=== PATIENT | female | born 1995 | race African-American/Black ===

== ENCOUNTER 2022-11-15 13:29 | Emergency (ER) | payer MEDICAID, OTHER ==
[~2022-11-15] VITALS: Ht 167.6 cm; Wt 53.5 kg
[2022-11-15] MEDS ORDERED: LIDOCAINE HCL 1% 20 ML VIAL ONE (13:51)
[2022-11-15] MEDS ORDERED: LIDOCAINE HCL 1% 20 ML VIAL IJ ONE (14:00)
[2022-11-15] MEDS ORDERED: NEOMY/BACITRA/POLYMYXIN B OINT UD PACKET TP ONE ×2 (14:50→15:00)
--- NOTE | 2022-11-15 15:02 | NUR ---
Crutches dispensed. Pt instructed on proper use of crutches. Patient able to demonstrate correct use of crutches.
[2022-11-15 15:03] VITALS: BP 115/66
--- NOTE | 2022-11-15 15:04 | NUR ---
Patient discharged to home in stable condition. Written and verbal after care instructions given. Patient verbalizes understanding of instructions. Stressed follow up or return to ER for worsening s/s.
== END 2022-11-15 15:04 | disposition home or self-care (01) ==
LOC: ER 13:29
DX: S91.311A Laceration without foreign body, right foot, initial encounter (principal); W25.XXXA Contact with sharp glass, initial encounter; Y93.89 Activity, other specified; Y92.89 Other specified places as the place of occurrence of the external cause; Y99.8 Other external cause status
CPT/HCPCS: 99283; 12002; J3490; A4663